=== PATIENT | female | born 1960 | race Caucasian/White ===

== ENCOUNTER 2017-05-27 07:20 | Day surgery (SDC) | payer OTHER ==
[2017-05-21 09:31] LABS: ADD SCAN DIFF NO
[2017-05-21 09:38] LABS: BASOPHILS % 0.4 % (0.0-2.0); EOSINOPHILS # 0.1 10^3/ul (0.0-0.5); EOSINOPHILS % 1.2 % (0.0-7.0); HEMATOCRIT 38.5 % (37.0-47.0); HEMOGLOBIN 13.2 g/dl (12.0-16.0); LYMPHOCYTES # 2.4 10^3/ul (0.8-2.9); LYMPHOCYTES % 32.9 % (15.0-51.0); MEAN CORPUSCULAR HEMOGLOBIN 27.4 pg (29.0-33.0); MEAN CORPUSCULAR HGB CONC 34.3 g/dl (32.0-37.0); MEAN CORPUSCULAR VOLUME 79.9 fl (82.0-101.0); MEAN PLATELET VOLUME 10.4 fl (7.4-10.4); MONOCYTE # 0.4 10^3/ul (0.3-0.9); MONOCYTES % 5.6 % (0.0-11.0); NEUTROPHIL # 4.4 10^3/ul (1.6-7.5); NEUTROPHILS % 59.6 % (39.0-77.0); PLATELET COUNT 326 10^3/UL (140-415); RED BLOOD COUNT 4.82 10^6/ul (4.20-5.40); RED CELL DISTRIBUTION WIDTH 11.9 % (11.5-14.5); WHITE BLOOD COUNT 7.3 10^3/ul (4.8-10.8)
[2017-05-21 10:06] LABS: INR 0.91; PROTIME 12.3 Sec (12.2-14.2)
[2017-05-21 10:07] LABS: PARTIAL THROMBOPLASTIN TIME 25.3 Sec (25.0-35.0)
[2017-05-21 10:19] LABS: ALBUMIN 4.7 g/dl (3.3-4.9); ALBUMIN/GLOBULIN RATIO 1.56; BILIRUBIN,INDIRECT 0.2 mg/dl (0-1.1); BILIRUBIN,TOTAL 0.2 mg/dl (0.2-1.3); TOTAL PROTEIN 7.7 g/dl (6.1-8.1)
[2017-05-21 10:22] LABS: CALCIUM 9.6 mg/dl (8.4-10.2); CREATININE 0.57 mg/dl (0.44-1.00); POTASSIUM 4.5 mmol/L (3.5-5.1)
[~2017-05-27] VITALS: Ht 167.6 cm; Wt 82.0 kg
[2017-05-27 07:55] VITALS: BMI 29.2
[2017-05-27 08:15] VITALS: BP 220/90; PULSE 80
[2017-05-27 08:27] VITALS: BP 200/95; PULSE 76
[2017-05-27] MEDS: hydrALAzine 20 MG INJ IV PRN ×4 (08:27→09:31)
[2017-05-27 08:40] VITALS: BP 190/85; PULSE 81
[2017-05-27 08:58] VITALS: BP 171/75; PULSE 76
[2017-05-27] MEDS ORDERED: GLUCOSE GEL 15 GRAM TUBE BUCCAL PRN (09:30)
[2017-05-27] MEDS ORDERED: INSULIN ASPART [NOVOLOG] 3 ML PEN SC ONE (09:30)
[2017-05-27] MEDS ORDERED: GLUCOSE GEL 15 GRAM TUBE PO PRN ×2 (09:30)
[2017-05-27] MEDS ORDERED: DEXTROSE 50% 50 ML SYRINGE IV PRN ×2 (09:30)
[2017-05-27] MEDS ORDERED: GLUCAGON 1 MG INJ IM PRN (09:30)
[2017-05-27 09:34] VITALS: Ht 167.6 cm; Wt 82.0 kg
[2017-05-27] MEDS ORDERED: LABETALOL HCL 20MG INJ ONE (10:04)
[2017-05-27] MEDS ORDERED: SIMV40TA2 PO (11:06)
[2017-05-27] MEDS ORDERED: SITA100T8 PO (11:06)
[2017-05-27] MEDS ORDERED: CLON-379 PO (11:06)
[2017-05-27] MEDS ORDERED: PIOG45TA15 PO (11:07)
[2017-05-27] MEDS ORDERED: LISI20TA11 PO (11:07)
[2017-05-27] MEDS ORDERED: METF1000 PO (11:07)
[2017-05-27] MEDS ORDERED: GLIP5TAB13 PO (11:08)
[2017-05-27] MEDS ORDERED: SOD CHLORIDE 0.9% 1,000 ML IV SCH (11:30)
[2017-05-27] MEDS ORDERED: CEFAZOLIN 2 GM/50 ML (PMX) 50 ML IVPB ONE (11:30)
== END 2017-05-27 10:30 | disposition home or self-care (01) ==
LOC: SDS 07:20
PROVIDERS: ATTEND Surgery Surgical Oncology
DX: C50.912 Malignant neoplasm of unspecified site of left female breast (principal); Z53.9 Procedure and treatment not carried out, unspecified reason
CPT/HCPCS: 80053; 82962; 85025; 85610; 85730; J0360; J1815

== ENCOUNTER 2017-05-27 10:40 | Inpatient (IN) | payer OTHER ==
[~2017-05-27] VITALS: Ht 167.6 cm; Wt 84.7 kg
[2017-05-27 10:45] VITALS: Ht 167.6 cm; Wt 84.7 kg
[2017-05-27] MEDS ORDERED: CLON-379 PO (11:06)
[2017-05-27] MEDS ORDERED: SITA100T8 PO (11:06)
[2017-05-27] MEDS ORDERED: SIMV40TA2 PO (11:06)
[2017-05-27] MEDS ORDERED: METF1000 PO (11:07)
[2017-05-27] MEDS ORDERED: LISI20TA11 PO (11:07)
[2017-05-27] MEDS ORDERED: PIOG45TA15 PO (11:07)
[2017-05-27] MEDS ORDERED: GLIP5TAB13 PO (11:08)
[2017-05-27 11:20] LABS: ADD SCAN DIFF NO
[2017-05-27 11:25] LABS: BASOPHILS % 0.5 % (0.0-2.0); EOSINOPHILS # 0.1 10^3/ul (0.0-0.5); EOSINOPHILS % 0.8 % (0.0-7.0); HEMATOCRIT 40.7 % (37.0-47.0); HEMOGLOBIN 13.8 g/dl (12.0-16.0); LYMPHOCYTES # 2.8 10^3/ul (0.8-2.9); LYMPHOCYTES % 31.2 % (15.0-51.0); MEAN CORPUSCULAR HGB CONC 33.9 g/dl (32.0-37.0); MEAN CORPUSCULAR VOLUME 79.6 fl (82.0-101.0); MEAN PLATELET VOLUME 10.6 fl (7.4-10.4); MONOCYTE # 0.4 10^3/ul (0.3-0.9); MONOCYTES % 4.4 % (0.0-11.0); NEUTROPHIL # 5.5 10^3/ul (1.6-7.5); NEUTROPHILS % 62.6 % (39.0-77.0); PLATELET COUNT 310 10^3/UL (140-415); RED BLOOD COUNT 5.11 10^6/ul (4.20-5.40); RED CELL DISTRIBUTION WIDTH 12.3 % (11.5-14.5); WHITE BLOOD COUNT 8.8 10^3/ul (4.8-10.8)
[2017-05-27] MEDS ORDERED: NICARDipine HCL 30 MG CAPSULE PO ONE (11:30)
[2017-05-27 11:55] LABS: INR 0.84; PROTIME 11.5 Sec (12.2-14.2); PT RATIO 0.9
[2017-05-27 11:56] LABS: PARTIAL THROMBOPLASTIN TIME 22.4 Sec (25.0-35.0)
[2017-05-27] MEDS ORDERED: ONDANSETRON 4 MG INJ IV PRN (12:00)
[2017-05-27] MEDS ORDERED: ACETAMINOPHEN 325 MG TAB PO PRN (12:00)
--- NOTE | 2017-05-27 12:17 | ERA ---
ER Documentation Chief Complaint Date/Time DATE: 05/27/17 TIME: 12:15 Chief Complaint HTN DENIES CP, SOB HPI 57-year-old female who presents for asymptomatic hypertension. The patient was being arranged for preop for left breast mastectomy secondary to breast cancer. She did not take her morning blood pressure medication that includes clonidine. Prior to operation the patient's blood pressure was in the 200s and the operation was canceled. She was given clonidine and hydralazine and sent to the emergency room for admission. The patient has no symptoms no headache chest pain or shortness of breath. ROS All systems reviewed and are negative except as per history of present illness. Medications Home Meds Reported Medications Glipizide* (Glipizide*) 5 Mg Tablet, 5 MG PO AC BREAKFAST, TAB 05/27/17 Pioglitazone Hcl* (Pioglitazone Hcl*) 45 Mg Tablet, 45 MG PO DAILY, TAB 05/27/17 Metformin Hcl* (Metformin Hcl*) 1,000 Mg Tablet, 1000 MG PO WITH BREAKFAST DINNE , #30 TAB 05/27/17 Lisinopril* (Lisinopril*) 20 Mg Tablet, 20 MG PO DAILY, #30 TAB 05/27/17 Clonidine Hcl* (Clonidine Hcl*) 0.1 Mg Tab, 0.1 MG PO DAILY Y for ELEVATED BLOOD PRESSURE, TAB 05/27/17 Sitagliptin* (Januvia*) 100 Mg Tablet, 100 MG PO DAILY, #30 TAB 05/27/17 Simvastatin* (Zocor*) 40 Mg Tablet, 80 MG PO QHS, #30 TAB 05/27/17 Allergies Allergies: Coded Allergies: No Known Allergy (Unverified , 05/27/17) PMhx/Soc History of Surgery: Yes (HYSTRECTOMY, CSECTION) Anesthesia Reaction: No Hx Neurological Disorder: No Hx Respiratory Disorders: No Hx Cardiac Disorders: Yes (HTN) Hx Miscellaneous Medical Probl: Yes (BREAST TUMOR) Hx Alcohol Use: No Hx Substance Use: No Hx Tobacco Use: No Smoking Status: Never smoker Physical Exam Vitals Vital Signs Date Time Temp Pulse Resp B/P Pulse Ox O2 Delivery O2 Flow Rate FiO2 05/27/17 11:56 80 18 147/57 99 Room Air 05/27/17 11:05 Nasal Cannula 2 05/27/17 10:45 98.4 88 18 193/83 100 Physical Exam General: Well developed, well nourished, no acute distress Head: Normocephalic, atraumatic. Eyes: Pupils equally reactive, EOM intact ENT: Moist mucous membranes Neck: Supple, no lymphadenopathy Respiratory: Lungs clear bilaterally, no distress Cardiovascular: RRR, no murmurs, rubs, or gallops Abdominal: Soft, non-tender, non-distended, no peritoneal signs : Deferred MSK: No edema, no unilateral swelling, 5/5 strength Neurologic: Alert and oriented, moving all extremities, normal speech, no focal weakness, no cerebellar signs Skin: No rash Psych: Normal mood Result Diagram: 05/27/17 1110 Results 24 hrs Laboratory Tests Test 05/27/17 11:10 White Blood Count 8.810^3/ul Red Blood Count 5.1110^6/ul Hemoglobin 13.8g/dl Hematocrit 40.7% Mean Corpuscular Volume 79.6fl Mean Corpuscular Hemoglobin 27.0pg Mean Corpuscular Hemoglobin Concent 33.9g/dl Red Cell Distribution Width 12.3% Platelet Count 60454^3/UL Mean Platelet Volume 10.6fl Neutrophils % 62.6% Lymphocytes % 31.2% Monocytes % 4.4% Eosinophils % 0.8% Basophils % 0.5% Nucleated Red Blood Cells % 0.0/100WBC Neutrophils # 5.510^3/ul Lymphocytes # 2.810^3/ul Monocytes # 0.410^3/ul Eosinophils # 0.110^3/ul Basophils # 0.010^3/ul Nucleated Red Blood Cells # 0.010^3/ul Prothrombin Time 11.5Sec Prothrombin Time Ratio 0.9 INR International Normalized Ratio 0.84 Activated Partial Thromboplast Time 22.4Sec Current Medications Medications (Trade) Dose Ordered Sig/Debby Route PRN Reason Start Time Stop Time Status Last Admin Dose Admin Nicardipine HCl (Cardene) 30 mg ONCE ONCE PO 05/27/17 11:30 05/27/17 11:31 DC 05/27/17 11:24 Ondansetron HCl (Zofran Inj) 4 mg BRIDGE ORDER PRN IV NAUSEA AND/OR VOMITING 05/27/17 12:00 05/28/17 11:59 Acetaminophen (Tylenol Tab) 650 mg ER BRIDGE PRN PO MILD PAIN/FEVER 05/27/17 12:00 05/28/17 11:59 Procedures/MDM LAB INTERPRETATION: No acute process MEDICAL DECISION MAKING: Patient's blood pressure was elevated (>120/80) but appears stable without evidence of hypertensive emergency or urgency. The patient was counseled about the risks of hypertension and urged to pursue outpatient monitoring and therapy within a week with their primary care physician. The patient has no signs or symptoms of endorgan dysfunction. No indication for EKG, troponin, CT brain. The patient did not take her morning blood pressure medication which is likely the etiology. I believe the risk of rapidly lowering her blood pressure outweigh the benefits. Oral Cardene was provided. Patient does not require IV medication. Medical surgical admission would be appropriate. Her surgeon would like her admitted for likely operative intervention in the morning. I kept the patient and/or family informed of laboratory and diagnostic imaging results throughout the emergency room course. DISPOSITION PLAN: Medical surgical admission for management of essential hypertension and preop CONSULTATION: Accepting care team and consultations: I discussed the current laboratory data, diagnostic imaging and emergency care provided. Admitting team: Dr. Daniel Whatley Admitting team indication: Insurance directed Consulting services: Dr. Gauthier, surgeon Departure Diagnosis: Primary Impression: Essential hypertension Additional Impressions: History of breast cancer Asymptomatic hypertensive urgency Condition: Stable SHERITA DONOVAN MD May 27, 2017 12:17
[2017-05-27 12:31] LABS: CALCIUM 9.7 mg/dl (8.4-10.2); CREATININE 0.44 mg/dl (0.44-1.00); POTASSIUM 4.3 mmol/L (3.5-5.1)
[2017-05-27 16:45] VITALS: BP 183/70; PULSE 83; RESP 18
[2017-05-27] MEDS ORDERED: hydrALAzine 20 MG INJ IV PRN (20:30)
[2017-05-27] MEDS ORDERED: DEXTROSE 50% 50 ML SYRINGE IV PRN ×2 (21:00)
[2017-05-27] MEDS ORDERED: GLUCOSE GEL 15 GRAM TUBE BUCCAL PRN (21:00)
[2017-05-27] MEDS ORDERED: GLUCOSE GEL 15 GRAM TUBE PO PRN ×2 (21:00)
[2017-05-27] MEDS ORDERED: GLUCAGON 1 MG INJ IM PRN (21:00)
[2017-05-27] MEDS: ATORVASTATIN 40 MG TAB PO SCH (21:12)
[2017-05-27] MEDS: LISINOPRIL 20 MG TAB PO SCH (21:13)
[2017-05-27] MEDS ORDERED: NEOSTIGMINE 3 MG/3 ML SYRINGE ONE (21:32)
[2017-05-27] MEDS ORDERED: ONDANSETRON 4 MG INJ ONE (21:32)
[2017-05-27] MEDS ORDERED: GLYCOPYRROLATE 0.4 MG INJ ONE (21:32)
[2017-05-27] MEDS ORDERED: MIDAZOLAM 1 MG/ML 2 ML INJ ONE (21:32)
[2017-05-27] MEDS ORDERED: PROPOFOL 20 ML ONE (21:32)
[2017-05-27] MEDS ORDERED: CEFAZOLIN 1 GM INJ ONE (21:32)
[2017-05-27] MEDS ORDERED: DEXAMETHASONE 4 MG/ML 1 ML INJ ONE (21:32)
[2017-05-27] MEDS ORDERED: ROCURONIUM 50 MG INJ ONE (21:32)
--- NOTE | 2017-05-27 21:32 | HP ---
Date/Time of Note Date/Time of Note DATE: 05/27/17 TIME: 21:30 Assessment/Plan VTE Prophylaxis VTE Prophylaxis Intervention: other Lines/Catheters IV Catheter Type (from Nrs): Saline Lock Assessment/Plan Chief Complaint/Hosp Course [facility] HYPERTENSION DM LEFT BREAST CANCER PLAN BP CONTROL Problems: HPI/ROS Admit Date/Time Admit Date/Time May 27, 2017 at 11:38 ROS Constitutional: no complaints Eyes: no complaints ENT: no complaints Respiratory: no complaints Cardiovascular: no complaints Gastrointestinal: no complaints Genitourinary: no complaints Musculoskeletal: no complaints Skin: no complaints Neurologic: no complaints Endocrine: no complaints Lymphatic: no complaints Psychological: no complaints Immunologic: no complaints PMH/Family/Social Past Medical History Medical History: diabetes, hypertension, other (BREAST CA) Past Surgical History Past Surgical Hx: other (C SEC AND HYSTERECTOMY) Social History Alcohol Use: none Smoking Status: Never smoker Drug Use: none Exam/Review of Systems Vital Signs Vitals Vital Signs Date Time Temp Pulse Resp B/P Pulse Ox O2 Delivery O2 Flow Rate FiO2 05/27/17 16:45 96.8 83 18 183/70 98 Room Air 05/27/17 11:05 2 Exam Constitutional: alert, oriented, well developed Psych: nl mood/affect, no complaints Head: atraumatic, normocephalic Eyes: EOMI, nl conjunctiva, nl lids ENMT: nl external ears & nose, nl lips & teeth, nl nasal mucosa & septum Neck: non-tender, supple Respiratory: clear to auscultation, normal air movement Cardiovascular: nl pulses, regular rate and rhythm Gastrointestinal: nl liver, spleen, non-tender, soft Genitourinary - Female: nl adnexae Musculoskeletal: nl extremities to inspection, nl gait and stance Extremities: normal pulses Neurological: ACCOUNT [employer]CIAL [employer] II-XII intact, nl mental status, nl speech Skin: nl turgor Lymph: nl lymph nodes Labs Result Diagram: 05/27/17 1110 05/27/17 1149 Medications Medications Current Medications Lisinopril (Zestril) 20 mg DAILY PO Last administered on 05/27/17 21:13; Admin Dose 20 MG; Start 05/27/17 at 20:30 Atorvastatin Calcium (Lipitor) 40 mg DAILY@21 PO Last administered on 21:12; Admin Dose 40 MG; Start 05/27/17 at 21:00 Clonidine (Catapres) 0.2 mg TID PO Last administered on 05/27/17t 21:13; Admin Dose 0.2 MG; Start 05/27/17 at 21:00 Hydralazine HCl (Apresoline) 10 mg Q6H PRN IV SBP>170; Start 05/27/17 at 20:30 Diagnostic Test (Pha) 1 ea 1 ea 02 XX ; Start 05/28/17 at 02:00 Dextrose/Sodium Chloride (D5-1/2ns) 1,000 ml @ 40 mls/hr Q24H IV ; Start at 00:00 Miscellaneous Information 1 ea NOTE XX ; Start 05/27/17 at 21:00 Glucose (Glutose) 15 gm Q15M PRN PO DECREASED GLUCOSE; Start 05/27/17 at 21:00 Glucose (Glutose) 22.5 gm Q15M PRN PO DECREASED GLUCOSE; Start 05/27/17 at 21: 00 Dextrose (D50w Syringe) 25 ml Q15M PRN IV DECREASED GLUCOSE; Start 05/27/17 at 21:00 Dextrose (D50w Syringe) 50 ml Q15M PRN IV DECREASED GLUCOSE; Start 05/27/17 at 21:00 Glucagon (Glucagen) 1 mg Q15M PRN IM DECREASED GLUCOSE; Start 05/27/17 at 21:00 Glucose (Glutose) 15 gm Q15M PRN BUCCAL DECREASED GLUCOSE; Start 05/27/17 at 21 :00 SAMMIE HODGES MD May 27, 2017 21:32
[2017-05-27 21:35] VITALS: BP 184/84; RESP 19
[2017-05-27 22:18] VITALS: BP 120/59; PULSE 93; RESP 18
[2017-05-27] MEDS: INSULIN ASPART [NOVOLOG] 3 ML PEN SC SCH (22:25)
[2017-05-27] MEDS ORDERED: SUGAMMADEX SODIUM 200 MG/2 ML VIAL IV ONE (23:22)
[2017-05-28] MEDS ORDERED: DEXTROSE 5%-0.45% NACL 1,000 ML IV SCH
[2017-05-28] MEDS ORDERED: ACCU-CHEK XX SCH ×2 (02:00)
[2017-05-28 05:18] VITALS: BP 140/63; PULSE 78; RESP 18
[2017-05-28 06:20] LABS: BASOPHIL # 0.1 10^3/ul (0.0-0.1); BASOPHILS % 0.4 % (0.0-2.0); EOSINOPHILS # 0.1 10^3/ul (0.0-0.5); EOSINOPHILS % 0.5 % (0.0-7.0); HEMATOCRIT 40.3 % (37.0-47.0); HEMOGLOBIN 13.4 g/dl (12.0-16.0); LYMPHOCYTES % 25.9 % (15.0-51.0); MEAN CORPUSCULAR HEMOGLOBIN 26.7 pg (29.0-33.0); MEAN CORPUSCULAR HGB CONC 33.3 g/dl (32.0-37.0); MEAN CORPUSCULAR VOLUME 80.4 fl (82.0-101.0); MEAN PLATELET VOLUME 10.6 fl (7.4-10.4); MONOCYTE # 0.8 10^3/ul (0.3-0.9); MONOCYTES % 7.2 % (0.0-11.0); NEUTROPHIL # 7.5 10^3/ul (1.6-7.5); NEUTROPHILS % 65.7 % (39.0-77.0); PLATELET COUNT 375 10^3/UL (140-415); RED BLOOD COUNT 5.01 10^6/ul (4.20-5.40); RED CELL DISTRIBUTION WIDTH 12.3 % (11.5-14.5); WHITE BLOOD COUNT 11.4 10^3/ul (4.8-10.8)
[2017-05-28] MEDS ORDERED: AL HYDROX/MG HYDROX/SIMETH 30 ML CUP PO PRN (06:30)
[2017-05-28 06:41] LABS: CREATININE 0.59 mg/dl (0.44-1.00); POTASSIUM 3.8 mmol/L (3.5-5.1)
[2017-05-28 07:21] LABS: ADD SCAN DIFF NO
[2017-05-28 07:45] VITALS: BP 128/62; RESP 16
[2017-05-28] MEDS: INSULIN ASPART [NOVOLOG] 3 ML PEN SC SCH ×4 (08:00→20:11)
[2017-05-28] MEDS: LISINOPRIL 20 MG TAB PO SCH (12:30)
--- NOTE | 2017-05-28 12:54 | PN ---
Date/Time of Note Date/Time of Note DATE: 05/28/17 TIME: 12:52 Assessment/Plan VTE Prophylaxis VTE Prophylaxis Intervention: ambulation Lines/Catheters IV C[facility]ter Type (from [facility]): Saline Lock Assessment/Plan Chief Complaint/Hosp Course 1. HYPERTENSION 2. DM type II uncontrolled 3. LEFT BREAST CANCER Problems: Assessment/Plan 1. Start tradjenta 5 mg for DM type II 2. Dr Alvarez for cardiology consult and clearance before mastectomy Exam/Review of Systems Vital Signs Vitals Vital Signs Date Time Temp Pulse Resp B/P Pulse Ox O2 Delivery O2 Flow Rate FiO2 05/28/17 07:45 99.3 83 16 128/62 97 05/28/17 05:18 Room Air 05/27/17 11:05 2 Intake and Output 05/27/17 05/27/17 05/28/17 15:00 23:00 07:00 Intake Total 1500 ml Balance 1500 ml Results Result Diagram: 05/28/17 0455 05/28/17 0435 Results 24 hrs Laboratory Tests Test 05/27/17 17:16 05/27/17 21:08 05/27/17 22:23 05/28/17 01:53 Bedside Glucose 189 186 211 244 H Test 05/28/17 04:35 05/28/17 04:55 05/28/17 08:17 05/28/17 12:26 Sodium Level 136 Potassium Level 3.8 Chloride Level 99 Carbon Dioxide Level 25 Anion Gap 16 Blood Urea Nitrogen 13 Creatinine 0.59 Glucose Level 289 H Calcium Level 10.0 White Blood Count 11.4 #H Red Blood Count 5.01 Hemoglobin 13.4 Hematocrit 40.3 Mean Corpuscular Volume 80.4 L Mean Corpuscular Hemoglobin 26.7 L Mean Corpuscular Hemoglobin Concent 33.3 Red Cell Distribution Width 12.3 Platelet Count 375 # Mean Platelet Volume 10.6 H Neutrophils % 65.7 Lymphocytes % 25.9 Monocytes % 7.2 Eosinophils % 0.5 Basophils % 0.4 Nucleated Red Blood Cells % 0.0 Neutrophils # 7.5 Lymphocytes # 3.0 H Monocytes # 0.8 Eosinophils # 0.1 Basophils # 0.1 Nucleated Red Blood Cells # 0.0 Bedside Glucose 295 H 249 H Medications Medications Current Medications Lisinopril (Zestril) 20 mg DAILY PO Last administered on 05/28/17t 12:30; Admin Dose 20 MG; Start 05/27/17 at 20:30 Atorvastatin Calcium (Lipitor) 40 mg DAILY@21 PO Last administered on 21:12; Admin Dose 40 MG; Start 05/27/17 at 21:00 Clonidine (Catapres) 0.2 mg TID PO Last administered on 05/28/17 12:29; Admin Dose 0.2 MG; Start 05/27/17 at 21:00 Hydralazine HCl (Apresoline) 10 mg Q6H PRN IV SBP>170 Last administered on 05/27 21:48; Admin Dose 10 MG; Start 05/27/17 at 20:30 Diagnostic Test (Pha) 1 ea 1 ea 02 XX ; Start 05/28/17 at 02:00 Dextrose/Sodium Chloride (D5-1/2ns) 1,000 ml @ 40 mls/hr Q24H IV Last administered on 05/28/17 00:28; Admin Dose 40 MLS/HR; Start 05/28/17 at 00:00 Miscellaneous Information 1 ea NOTE XX ; Start 05/27/17 at 21:00 Glucose (Glutose) 15 gm Q15M PRN PO DECREASED GLUCOSE; Start 05/27/17 at 21:00 Glucose (Glutose) 22.5 gm Q15M PRN PO DECREASED GLUCOSE; Start 05/27/17 at 21: 00 Dextrose (D50w Syringe) 25 ml Q15M PRN IV DECREASED GLUCOSE; Start 05/27/17 at 21:00 Glucagon (Glucagen) 1 mg Q15M PRN IM DECREASED GLUCOSE; Start 05/27/17 at 21:00 Glucose (Glutose) 15 gm Q15M PRN BUCCAL DECREASED GLUCOSE; Start 05/27/17 at 21 :00 Al Hydrox/Mg Hydrox/Simethicone (Mag-Al Plus) 30 ml Q6H PRN PO GASTROINTESTINAL UPSET Last administered on 05/28/17 06:47; Admin Dose 30 ML; Start 05/28/17 at 06:30 SANTA GONZALEZ May 28, 2017 12:54
[2017-05-28] MEDS: LEVOFLOXACIN 500 MG TAB GTB SCH (15:25)
[2017-05-28] MEDS: LINAGLIPTIN 5 MG TABLET PO SCH (15:26)
--- NOTE | 2017-05-28 16:10 | CONS ---
Date/Time of Note Date/Time of Note DATE: 05/28/17 TIME: 16:04 Assessment/Plan Assessment/Plan Chief Complaint/Hosp Course IMP: 1.Pre-op for mastectomy 2.HTN-improving on oral antihypertensives 3.HL 4.Breast ca 5.DM Recc: -serial ecg's -Pauline -Echo -Consider lexiscan if abnl ecg or echo findings given cardiac risk factors -Follow BS closely -Continue statin and check fasting lipid panel Problems: Consultation Date/Type/Reason Admit Date/Time May 27, 2017 at 11:38 Date of Consultation: May 28, 2017 Type of Consultation: Cardiology Reason for Consultation Pre-op Hx of Present Illness 57 y/o female with H/O HTN, HL, CVA, DM, breastvca who presented for mastectomy and was found to have elevated uncontrolled BP. Thus procedure canceled and patient admitted for further work-up. Patient denies cp/sob/prior AL. Constitutional: no complaints Eyes: no complaints ENT: no complaints Respiratory: no complaints Cardiovascular: no complaints Gastrointestinal: no complaints Genitourinary: no complaints Musculoskeletal: no complaints Skin: no complaints Neurologic: no complaints Lymphatic: no complaints Psychological: nl mood/affect, no complaints Immunologic: no complaints Past Medical History Medical History: diabetes, high cholesterol, hypertension, other (BREAST CA, CVA) Past Surgical History Past Surgical Hx: other (C SEC AND HYSTERECTOMY) Social History Alcohol Use: none Smoking Status: Never smoker Drug Use: none Exam/Review of Systems Vital Signs Vitals Vital Signs Date Time Temp Pulse Resp B/P Pulse Ox O2 Delivery O2 Flow Rate FiO2 05/28/17 07:45 99.3 83 16 128/62 97 05/28/17 05:18 Room Air 05/27/17 11:05 2 Intake and Output 05/27/17 05/27/17 05/28/17 15:00 23:00 07:00 Intake Total 1500 ml Balance 1500 ml Exam Constitutional: alert, oriented Psych: no complaints Head: normocephalic ENMT: mucosa pink and moist Neck: jvd (8cm water), supple Respiratory: clear to auscultation Cardiovascular: regular rate and rhythm Gastrointestinal: non-tender, soft Musculoskeletal: muscle tone (normal) Extremities: edema (nonw) Neurological: other (No focal deficits) Results Result Diagram: 05/28/17 0455 05/28/17 0435 Results 24 hrs Laboratory Tests Test 05/27/17 17:16 05/27/17 21:08 05/27/17 22:23 05/28/17 01:53 Bedside Glucose 189 186 211 244 H Test 05/28/17 04:35 05/28/17 04:55 05/28/17 08:17 05/28/17 12:26 Sodium Level 136 Potassium Level 3.8 Chloride Level 99 Carbon Dioxide Level 25 Anion Gap 16 Blood Urea Nitrogen 13 Creatinine 0.59 Glucose Level 289 H Calcium Level 10.0 White Blood Count 11.4 #H Red Blood Count 5.01 Hemoglobin 13.4 Hematocrit 40.3 Mean Corpuscular Volume 80.4 L Mean Corpuscular Hemoglobin 26.7 L Mean Corpuscular Hemoglobin Concent 33.3 Red Cell Distribution Width 12.3 Platelet Count 375 # Mean Platelet Volume 10.6 H Neutrophils % 65.7 Lymphocytes % 25.9 Monocytes % 7.2 Eosinophils % 0.5 Basophils % 0.4 Nucleated Red Blood Cells % 0.0 Neutrophils # 7.5 Lymphocytes # 3.0 H Monocytes # 0.8 Eosinophils # 0.1 Basophils # 0.1 Nucleated Red Blood Cells # 0.0 Bedside Glucose 295 H 249 H Medications Medications Current Medications Lisinopril (Zestril) 20 mg DAILY PO Last administered on 05/28/17 12:30; Admin Dose 20 MG; Start 05/27/17 at 20:30 Atorvastatin Calcium (Lipitor) 40 mg DAILY@21 PO Last administered on 21:12; Admin Dose 40 MG; Start 05/27/17 at 21:00 Clonidine (Catapres) 0.2 mg TID PO Last administered on 05/28/17 12:29; Admin Dose 0.2 MG; Start 05/27/17 at 21:00 Hydralazine HCl (Apresoline) 10 mg Q6H PRN IV SBP>170 Last administered on 05/27 21:48; Admin Dose 10 MG; Start 05/27/17 at 20:30 Diagnostic Test (Pha) (Accu-Chek) 1 ea 02 XX ; Start 05/28/17 at 02:00 Miscellaneous Information 1 ea NOTE XX ; Start 05/27/17 at 21:00 Glucose (Glutose) 15 gm Q15M PRN PO DECREASED GLUCOSE; Start 05/27/17 at 21:00 Glucose (Glutose) 22.5 gm Q15M PRN PO DECREASED GLUCOSE; Start 05/27/17 at 21: 00 Dextrose (D50w Syringe) 25 ml Q15M PRN IV DECREASED GLUCOSE; Start 05/27/17 at 21:00 Dextrose (D50w Syringe) 50 ml Q15M PRN IV DECREASED GLUCOSE; Start 05/27/17 at 21:00 Glucagon (Glucagen) 1 mg Q15M PRN IM DECREASED GLUCOSE; Start 05/27/17 at 21:00 Glucose (Glutose) 15 gm Q15M PRN BUCCAL DECREASED GLUCOSE; Start 05/27/17 at 21 :00 Al Hydrox/Mg Hydrox/Simethicone (Mag-Al Plus) 30 ml Q6H PRN PO GASTROINTESTINAL UPSET Last administered on 05/28/17 06:47; Admin Dose 30 ML; Start 05/28/17 at 06:30 Linagliptin (Tradjenta) 5 mg DAILY PO Last administered on 05/28/17 15:26; Admin Dose 5 MG; Start 05/28/17 at 13:00 Levofloxacin (Levaquin) 500 mg DAILY GTB Last administered on 05/28/17 15:25; Admin Dose 500 MG; Start 05/28/17 at 13:00 NICOLE POLANCO May 28, 2017 16:10
[2017-05-28] MEDS: ATORVASTATIN 40 MG TAB PO SCH (20:13)
[2017-05-28] MEDS: POLYETHYLENE GLYCOL 17 GM PACKET PO PRN (21:21)
[2017-05-28 21:28] VITALS: BP 125/60; RESP 18
[2017-05-28] MEDS ORDERED: BISACODYL (EC) 5 MG TAB PO PRN (21:30)
[2017-05-28] MEDS ORDERED: NA PHOSPHATE/BIPHOS 133 ML ENEMA PR PRN (21:30)
[2017-05-28] MEDS ORDERED: DOCUSATE SODIUM 100 MG CAP PO PRN (21:30)
[2017-05-29 00:27] VITALS: BP 144/65; PULSE 81
[2017-05-29] MEDS ORDERED: DEXTROSE 5%-0.45% NACL 1,000 ML IV SCH (00:30)
[2017-05-29] MEDS: Insulin NOVOLOG SS MODERATE Algorithm(NPO/TPN/ENTERAL FEEDS) SC SCH ×3 (05:19→17:23)
[2017-05-29 05:20] VITALS: BP 146/68; PULSE 70
[2017-05-29 05:46] LABS: CHOL/HDL RATIO 6.8 RATIO
[2017-05-29] MEDS ORDERED: INSULIN ASPART [NOVOLOG] 3 ML PEN SC SCH ×2 (06:00→21:00)
[2017-05-29 07:40] VITALS: BP 149/67; RESP 18
[2017-05-29] MEDS: LINAGLIPTIN 5 MG TABLET PO SCH (08:37)
[2017-05-29] MEDS: LISINOPRIL 20 MG TAB PO SCH (08:38)
[2017-05-29] MEDS: LEVOFLOXACIN 500 MG TAB GTB SCH (08:38)
[2017-05-29] MEDS ORDERED: REGADENOSON 0.4 MG/5 ML SYG ONE (10:18)
--- NOTE | 2017-05-29 12:10 | PN ---
Date/Time of Note Date/Time of Note DATE: 05/29/17 TIME: 12:08 Assessment/Plan VTE Prophylaxis VTE Prophylaxis Intervention: ambulation Lines/Catheters IV Catheter Type (from Nrs): Saline Lock Assessment/Plan Chief Complaint/Hosp Course 1. HYPERTENSION 2. DM type II uncontrolled 3. LEFT BREAST CANCER Problems: Assessment/Plan 1. Cardiology clearance 2. Possible discharge 3. estimated surgery on Subjective 24 Hr Interval Summary Constitutional: no complaints Exam/Review of Systems Vital Signs Vitals Vital Signs Date Time Temp Pulse Resp B/P Pulse Ox O2 Delivery O2 Flow Rate FiO2 05/29/17 07:40 99.0 66 18 149/67 96 05/28/17 05:18 Room Air 05/27/17 11:05 2 Intake and Output 05/28/17 05/28/17 05/29/17 15:00 23:00 07:00 Intake Total 90 ml 450 ml 320 ml Balance 90 ml 450 ml 320 ml Exam Constitutional: alert, oriented Head: normocephalic Neck: supple Respiratory: clear to auscultation Results Result Diagram: 05/28/17 0455 05/28/17 0435 Results 24 hrs Laboratory Tests Test 05/28/17 12:26 05/28/17 18:40 05/28/17 20:11 05/29/17 00:40 Bedside Glucose 249 H 163 Troponin I < 0.012 < 0.012 Test 05/29/17 04:45 05/29/17 05:04 Triglycerides Level 144 Cholesterol Level 274 H LDL Cholesterol, Calculated 205 HDL Cholesterol 40 Cholesterol/HDL Ratio 6.8 Bedside Glucose 249 H Medications Medications Current Medications Lisinopril (Zestril) 20 mg DAILY PO Last administered on 05/29/17 08:38; Admin Dose 20 MG; Start 05/27/17 at 20:30 Atorvastatin Calcium (Lipitor) 40 mg DAILY@21 PO Last administered on 20:13; Admin Dose 40 MG; Start 05/27/17 at 21:00 Clonidine (Catapres) 0.2 mg TID PO Last administered on 05/29/17 08:38; Admin Dose 0.2 MG; Start 05/27/17 at 21:00 Hydralazine HCl (Apresoline) 10 mg Q6H PRN IV SBP>170 Last administered on 05/27 21:48; Admin Dose 10 MG; Start 05/27/17 at 20:30 Miscellaneous Information 1 ea NOTE XX ; Start 05/27/17 at 21:00 Glucose (Glutose) 15 gm Q15M PRN PO DECREASED GLUCOSE; Start 05/27/17 at 21:00 Glucose (Glutose) 22.5 gm Q15M PRN PO DECREASED GLUCOSE; Start 05/27/17 at 21: 00 Dextrose (D50w Syringe) 25 ml Q15M PRN IV DECREASED GLUCOSE; Start 05/27/17 at 21:00 Dextrose (D50w Syringe) 50 ml Q15M PRN IV DECREASED GLUCOSE; Start 05/27/17 at 21:00 Glucagon (Glucagen) 1 mg Q15M PRN IM DECREASED GLUCOSE; Start 05/27/17 at 21:00 Glucose (Glutose) 15 gm Q15M PRN BUCCAL DECREASED GLUCOSE; Start 05/27/17 at 21 :00 Al Hydrox/Mg Hydrox/Simethicone (Mag-Al Plus) 30 ml Q6H PRN PO GASTROINTESTINAL UPSET Last administered on 05/28/17 06:47; Admin Dose 30 ML; Start 05/28/17 at 06:30 Linagliptin (Tradjenta) 5 mg DAILY PO Last administered on 05/29/17 08:37; Admin Dose 5 MG; Start 05/28/17 at 13:00 Levofloxacin (Levaquin) 500 mg DAILY GTB Last administered on 05/29/17 08:38; Admin Dose 500 MG; Start 05/28/17 at 13:00 Polyethylene Glycol (Miralax) 17 gm DAILY PRN PO CONSTIPATION Last administered on 05/28/17 21:21; Admin Dose 17 GM; Start 05/28/17 at 21:30 Docusate Sodium (Colace) 100 mg BID PRN PO CONSTIPATION; Start 05/28/17 at 21: 30 Bisacodyl (Dulcolax) 10 mg BID PRN PO CONSTIPATION; Start 05/28/17 at 21:30 Sodium Biphosphate/ Sodium Phosphate (Fleet Enema) 133 ml DAILY PRN AR CONSTIPATION; Start 05/28/17 at 21:30 Insulin Aspart (Novolog Insulin Pen) (Adult SC Insulin - Moder... Q6 SC Last administered on 05/29/17 05:19; Admin Dose 6 UNIT; Start 05/29/17 at 06:00 SANTA GONZALEZ May 29, 2017 12:09
[2017-05-29 13:00] VITALS: BP 159/71
[2017-05-29 14:00] VITALS: BP 137/63
--- NOTE | 2017-05-29 16:23 | RADRPT ---
PROCEDURE: Nuclear medicine myocardial perfusion scan CLINICAL INDICATION: Chest pain; preop TECHNIQUE: 30.0 mCi of technetium 99m Myoview was administered for the stress study. 10.0 mCi of technetium 99m Myoview was administered for the resting study. The patient was stressed with 0.4 mg of Lexiscan. Images were reviewed in the short axis, vertical long axis, and horizontal long axis v iews. Wall motion was assessed and ejection fraction was calculated as well. Images were reviewed o n a high-resolution PACS workstation. COMPARISON: None available FINDINGS: Left ventricular size is within normal limits. There is moderate soft tissue and bowel attenuation artifact. The stress tomographic images demonstrate moderate diminished perfusion along the inferio r wall. Minimal breast attenuation artifact along the distal anteroseptal wall is seen as well. Th e resting tomographic images demonstrate a similar pattern. There is no evidence for reversible isc hemia. Wall motion is normal. The ejection fraction is calculated at 67%. IMPRESSION: 1. Moderate diminished perfusion along the inferior wall on the stress and rest images consistent w ith an old significant nontransmural HI. 2. There is no evidence for reversible ischemia. 3. Mild breast attenuation artifact. 4. Normal wall motion with normal ejection fraction of 67%. RPTAT: HMJB .Kris Camacho MD, Date Time Electronically viewed and signed by .Kris Camacho MD, MD on 05/29/2017 16:23 .B/
--- NOTE | 2017-05-29 16:26 | CONS ---
Date/Time of Note Date/Time of Note DATE: 05/29/17 TIME: 16:22 Assessment/Plan Assessment/Plan Additional Assessment/Plan 1.Pre-op for mastectomy - stress tst done today - will await results - if negative, OK to proceed 2.HTN-improving on oral antihypertensives - better now 3.HL - stable 4.Breast ca - resection to follow 5.DM - on meds, keep euglycemic. Consultation Date/Type/Reason Admit Date/Time May 27, 2017 at 11:38 Initial Consult Date 05/28/17 Type of Consultation: Cardiology 24 HR Interval Summary Free Text/Dictation S/p stress test will await results ROS: No fever, no chills, no nausea, no vomiting, no diarrhea/constipation No recent weight changes No chest pain, no PND, no orthopnea No dizziness, blurred vision No thirst, no heat or cold intolerance Exam/Review of Systems Vital Signs Vitals Vital Signs Date Time Temp Pulse Resp B/P Pulse Ox O2 Delivery O2 Flow Rate FiO2 05/29/17 07:40 99.0 66 18 149/67 96 05/28/17 05:18 Room Air 05/27/17 11:05 2 Intake and Output 05/28/17 05/28/17 05/29/17 15:00 23:00 07:00 Intake Total 90 ml 450 ml 320 ml Balance 90 ml 450 ml 320 ml Exam Geneal: WN/WD/NAD, AOx 3 HEENT: Unicetric/atraumatic/EOMI (follow commands) NECK: JVD elevated, no thyromegaly Lymph: no lymphadenopathy HEART: regular with no S3, II/ systolic murmur at apex LUNGS: Coarse sounds ABD: soft, NT, ND, +BS : Intact Neuro: non focal SKIN: chronic changes EXT: trace edema Results Result Diagram: 05/28/17 0455 05/28/17 0435 Results 24 hrs Laboratory Tests Test 05/28/17 18:40 05/28/17 20:11 05/29/17 00:40 05/29/17 04:45 Troponin I < 0.012 < 0.012 Bedside Glucose 163 Triglycerides Level 144 Cholesterol Level 274 H LDL Cholesterol, Calculated 205 HDL Cholesterol 40 Cholesterol/HDL Ratio 6.8 Test 05/29/17 05:04 05/29/17 12:38 Bedside Glucose 249 H 209 Medications Medications Current Medications Lisinopril (Zestril) 20 mg DAILY PO Last administered on 05/29/17 08:38; Admin Dose 20 MG; Start 05/27/17 at 20:30 Atorvastatin Calcium (Lipitor) 40 mg DAILY@21 PO Last administered on 20:13; Admin Dose 40 MG; Start 05/27/17 at 21:00 Clonidine (Catapres) 0.2 mg TID PO Last administered on 05/29/17 12:40; Admin Dose 0.2 MG; Start 05/27/17 at 21:00 Hydralazine HCl (Apresoline) 10 mg Q6H PRN IV SBP>170 Last administered on 05/27 21:48; Admin Dose 10 MG; Start 05/27/17 at 20:30 Miscellaneous Information 1 ea NOTE XX ; Start 05/27/17 at 21:00 Glucose (Glutose) 15 gm Q15M PRN PO DECREASED GLUCOSE; Start 05/27/17 at 21:00 Glucose (Glutose) 22.5 gm Q15M PRN PO DECREASED GLUCOSE; Start 05/27/17 at 21: 00 Dextrose (D50w Syringe) 25 ml Q15M PRN IV DECREASED GLUCOSE; Start 05/27/17 at 21:00 Dextrose (D50w Syringe) 50 ml Q15M PRN IV DECREASED GLUCOSE; Start 05/27/17 at 21:00 Glucagon (Glucagen) 1 mg Q15M PRN IM DECREASED GLUCOSE; Start 05/27/17 at 21:00 Glucose (Glutose) 15 gm Q15M PRN BUCCAL DECREASED GLUCOSE; Start 05/27/17 at 21 :00 Al Hydrox/Mg Hydrox/Simethicone (Mag-Al Plus) 30 ml Q6H PRN PO GASTROINTESTINAL UPSET Last administered on 05/28/17 06:47; Admin Dose 30 ML; Start 05/28/17 at 06:30 Linagliptin (Tradjenta) 5 mg DAILY PO Last administered on 05/29/17 08:37; Admin Dose 5 MG; Start 05/28/17 at 13:00 Levofloxacin (Levaquin) 500 mg DAILY GTB Last administered on 05/29/17 08:38; Admin Dose 500 MG; Start 05/28/17 at 13:00 Polyethylene Glycol (Miralax) 17 gm DAILY PRN PO CONSTIPATION Last administered on 05/28/17 21:21; Admin Dose 17 GM; Start 05/28/17 at 21:30 Docusate Sodium (Colace) 100 mg BID PRN PO CONSTIPATION; Start 05/28/17 at 21: 30 Bisacodyl (Dulcolax) 10 mg BID PRN PO CONSTIPATION; Start 05/28/17 at 21:30 Sodium Biphosphate/ Sodium Phosphate (Fleet Enema) 133 ml DAILY PRN ID CONSTIPATION; Start 05/28/17 at 21:30 Insulin Aspart (Novolog Insulin Pen) (Adult SC Insulin - Moder... Q6 SC Last administered on 05/29/17 05:19; Admin Dose 6 UNIT; Start 05/29/17 at 06:00 HITESH DUMONT MD May 29, 2017 16:26
--- NOTE | 2017-05-29 17:56 | RADRPT ---
Echocardiogram Report Patient Name: OSVALDO NICOLAS Gender: Female Date: 1960 Study Date: 29-May-2017 [employer]obile Sales Consultant: Willa [facility] Location: 2249 Ref. Physician: NICOLE POLANCO Quality: Adequate Procedures: Transthoracic echocardiogram with complete 2D, M-Mode, and doppler examination. Indications: Pre-op. 2D/M Mode Doppler Measurement Value Normal Ranges Measurement Value Normal Ranges LVIDd 2D 4.3 3.5 - 5.6 cm AV Peak Sanjay 1.7 m/sec LVIDs 2D 3.0 2.1 - 4.1 cm AV Peak PG 11.0 mmHg FS 2D 30.8 % AI Peak PG 69.0 mmHg LVPWd 2D 1.3 0.6 - 1.1 cm AI Peak Sanjay 4.2 m/sec IVSd 2D 1.3 0.6 - 1.1 cm AI PHT 615.0 msec IVS/LVPW 2D 1.0 LVOT Peak Sanjay 1.0 m/sec AoR Diam 2D 2.6 2.0 - 3.7 cm LVOT Peak PG 4.0 mmHg LA/Ao 2D 2 0 - 1 MV E Peak Sanjay 0.8 m/sec EDV 2D 77.3 cm3 MV A Peak Sanjay 0.9 m/sec ESV 2D 25.7 cm3 MV E/A 0.9 LA Dimen 2D 4.0 2.3 - 4.0 cm MV Decel Time 236 msec MV E/A 0.9 TR Peak Sanjay 2.5 m/sec TR Peak PG 25.0 mmHg Findings Left Ventricle: Normal left ventricular systolic function. Normal left ventricular cavity size. Mild concentric left ventricular hypertrophy. Ejection fraction is visually estimated at 65 %. Tissue Doppler/Mitral Doppler indices are consistent with impaired relaxation (Stage I diastolic dysfunction). Right Ventricle: Normal right ventricular size. Normal right ventricular systolic function. Left Atrium: The left atrium is normal in size. Right Atrium: The right atrium is normal in size. Mitral Valve: Mitral valve leaflets appear mildly thickened. Trace mitral regurgitation. Aortic Valve: Aortic cusps appear mildly calcified. Aortic valve opens normally. Mild aortic valve regurgitation. Tricuspid Valve: Normal appearance of the tricuspid valve. Estimated peak PA systolic pressure 28 mmHg. There is mild tricuspid regurgitation. Pulmonic Valve: Normal pulmonic valve appearance. There is trace pulmonic regurgitation. Pericardium: Normal pericardium with no significant pericardial effusion. Aorta: Normal aortic root. IVC: Normal size and normal respiratory collapse consistent with normal right atrial pressure. Conclusions 1.Normal left ventricular systolic function. Normal left ventricular cavity size. Mild concentric left ventricular hypertrophy. Ejection fraction is visually estimated at 65 %. Tissue Doppler/Mitral Doppler indices are consistent with impaired relaxation (Stage I diastolic dysfunction). 2.Mitral valve leaflets appear mildly thickened. Trace mitral regurgitation. 3.Aortic cusps appear mildly calcified. Aortic valve opens normally. Mild aortic valve regurgitation. 4.Normal appearance of the tricuspid valve. Estimated peak PA systolic pressure 28 mmHg. There is mild tricuspid regurgitation. Electronically Signed By: Kris Au 29-May-2017 17:55:06 -0700 Patient Name: OSVALDO NICOLAS Study Date: 29-May-2017 [id number]
[2017-05-29] MEDS: ATORVASTATIN 40 MG TAB PO SCH (20:39)
[2017-05-29] MEDS: Insulin NOVOLOG SS MODERATE Algorithm (SS with meals and bedtime) SC SCH (20:43)
[2017-05-29 21:47] VITALS: BP 142/65; RESP 20
[2017-05-30] MEDS ORDERED: ACCUCHECK AT 2AM (Patients on SS coverage) XX SCH (02:00)
[2017-05-30] MEDS: POLYETHYLENE GLYCOL 17 GM PACKET PO PRN (05:22)
[2017-05-30 07:56] VITALS: BP 184/81; RESP 16
[2017-05-30] MEDS: LISINOPRIL 20 MG TAB PO SCH (08:22)
[2017-05-30] MEDS: LINAGLIPTIN 5 MG TABLET PO SCH (08:22)
[2017-05-30] MEDS: LEVOFLOXACIN 500 MG TAB GTB SCH (08:22)
[2017-05-30] MEDS: Insulin NOVOLOG SS MODERATE Algorithm (SS with meals and bedtime) SC SCH ×2 (08:24→12:10)
[2017-05-30 09:55] VITALS: BP 124/57
[2017-05-30 14:04] VITALS: BP 117/54; PULSE 59
--- NOTE | 2017-05-30 14:33 | PDOCDIS ---
Discharge Instructions CONDITION Patient Condition: Good HOME CARE INSTRUCTIONS: Special Diet: KOSHER ACTIVITY: Activity Restrictions: Slowly Increase Activity FOLLOW UP/APPOINTMENTS Follow-up Plan f/u dr evans next wk see own pcp [address] duran 1 wk SAMMIE HODGES MD May 30, 2017 14:33
[2017-05-30] MEDS ORDERED: CLON0.2T12 PO (14:37)
[2017-05-30] MEDS ORDERED: LEVO500T72 GTB (14:37)
[2017-05-30] MEDS ORDERED: DOCU-216 PO (14:37)
[2017-05-30] MEDS ORDERED: BISA5TAB6 PO (14:37)
--- NOTE | 2017-05-30 15:20 | CONS ---
Date/Time of Note Date/Time of Note DATE: 05/30/17 TIME: 15:18 Assessment/Plan Assessment/Plan Additional Assessment/Plan 1.Pre-op for mastectomy - stress test - EF normal, no reversible disease - OK to proceed with surgery 2.HTN-improving on oral antihypertensives - better now 3.HL - stable 4.Breast ca - resection to follow 5.DM - on meds, keep euglycemic. Consultation Date/Type/Reason Admit Date/Time May 27, 2017 at 11:38 Initial Consult Date 05/28/17 Type of Consultation: Cardiology 24 HR Interval Summary Free Text/Dictation stress test - EF normal, no reversible disease - OK to proceed ROS: No fever, no chills, no nausea, no vomiting, no diarrhea/constipation No recent weight changes No chest pain, no PND, no orthopnea No dizziness, blurred vision No thirst, no heat or cold intolerance Exam/Review of Systems Vital Signs Vitals Vital Signs Date Time Temp Pulse Resp B/P Pulse Ox O2 Delivery O2 Flow Rate FiO2 05/30/17 14:04 59 117/54 05/30/17 07:56 98.7 16 95 05/28/17 05:18 Room Air 05/27/17 11:05 2 Intake and Output 05/29/17 05/29/17 05/30/17 14:59 22:59 06:59 Intake Total 110 ml 360 ml Balance 110 ml 360 ml Exam General: WN/WD/NAD, AOx 3 HEENT: Unicetric/atraumatic/EOMI (follow commands) NECK: JVD elevated, no thyromegaly Lymph: no lymphadenopathy HEART: regular with no S3, II/ systolic murmur at apex LUNGS: Coarse sounds ABD: soft, NT, ND, +BS : Intact Neuro: non focal SKIN: chronic changes EXT: trace edema Results Result Diagram: 05/28/17 0455 05/28/17 0435 Results 24 hrs Laboratory Tests Test 05/29/17 17:19 05/29/17 20:41 05/30/17 01:35 05/30/17 08:06 Bedside Glucose 192 197 206 244 H Test 05/30/17 12:06 Bedside Glucose 168 Medications Medications Current Medications Lisinopril (Zestril) 20 mg DAILY PO Last administered on 05/30/17t 08:22; Admin Dose 20 MG; Start 05/27/17 at 20:30 Atorvastatin Calcium (Lipitor) 40 mg DAILY@21 PO Last administered on 05/29/17 20:39; Admin Dose 40 MG; Start 05/27/17 at 21:00 Clonidine (Catapres) 0.2 mg TID PO Last administered on 05/30/17 08:23; Admin Dose 0.2 MG; Start 05/27/17 at 21:00 Hydralazine HCl (Apresoline) 10 mg Q6H PRN IV SBP>170 Last administered on 05/27 21:48; Admin Dose 10 MG; Start 05/27/17 at 20:30 Miscellaneous Information 1 ea NOTE XX ; Start 05/27/17 at 21:00 Glucose (Glutose) 15 gm Q15M PRN PO DECREASED GLUCOSE; Start 05/27/17 at 21:00 Glucose (Glutose) 22.5 gm Q15M PRN PO DECREASED GLUCOSE; Start 05/27/17 at 21: 00 Dextrose (D50w Syringe) 25 ml Q15M PRN IV DECREASED GLUCOSE; Start 05/27/17 at 21:00 Dextrose (D50w Syringe) 50 ml Q15M PRN IV DECREASED GLUCOSE; Start 05/27/17 at 21:00 Glucagon (Glucagen) 1 mg Q15M PRN IM DECREASED GLUCOSE; Start 05/27/17 at 21:00 Glucose (Glutose) 15 gm Q15M PRN BUCCAL DECREASED GLUCOSE; Start 05/27/17 at 21 :00 Al Hydrox/Mg Hydrox/Simethicone (Mag-Al Plus) 30 ml Q6H PRN PO GASTROINTESTINAL UPSET Last administered on 05/28/17 06:47; Admin Dose 30 ML; Start 05/28/17 at 06:30 Linagliptin (Tradjenta) 5 mg DAILY PO Last administered on 05/30/17 08:22; Admin Dose 5 MG; Start 05/28/17 at 13:00 Levofloxacin (Levaquin) 500 mg DAILY GTB Last administered on 05/30/17 08:22; Admin Dose 500 MG; Start 05/28/17 at 13:00 Polyethylene Glycol (Miralax) 17 gm DAILY PRN PO CONSTIPATION Last administered on 05/30/17 05:22; Admin Dose 17 GM; Start 6/30/17 at 21:30 Docusate Sodium (Colace) 100 mg BID PRN PO CONSTIPATION; Start 05/28/17 at 21: 30 Bisacodyl (Dulcolax) 10 mg BID PRN PO CONSTIPATION Last administered on t 17:28; Admin Dose 10 MG; Start 05/28/17 at 21:30 Sodium Biphosphate/ Sodium Phosphate (Fleet Enema) 133 ml DAILY PRN HI CONSTIPATION; Start 05/28/17 at 21:30 Diagnostic Test (Pha) (Accu-Chek) 1 ea 02 XX ; Start 05/30/17 at 02:00 HITESH DUMONT MD May 30, 2017 15:19
--- NOTE | 2017-05-31 16:06 | DS ---
Date/Time of Note Date/Time of Note DATE: 05/31/17 TIME: 16:02 Discharge Summary Admission/Discharge Info Admit Date/Time May 27, 2017 at 11:38 Discharge Date/Time May 30, 2017 at 15:50 Discharge Diagnosis breast cancer Consults Dr Saba, dr Au Procedures 2 D echocardiogram Hx of Present Illness pt was admitted for left breast mastectomy, but her BP was high and uncontrolable. Medications were adjusted and B controlled. Pt was cleared for surgery. She decided to go home before surgery and have microcliping done outpatient with dr Gauthier Hospital Course IMP: 1.Pre-op for mastectomy 2.HTN-improving on oral antihypertensives 3.HL 4.Breast ca 5.DM Recc: -serial ecg's -Pauline -Echo -Consider lexiscan if abnl ecg or echo findings given cardiac risk factors -Follow BS closely -Continue statin and check fasting lipid panel Home Meds Active Scripts Docusate Sodium (Dok) 100 Mg Capsule, 100 MG PO BID Y for CONSTIPATION for 14 Days, CAP Prov:SAMMIE HODGES MD 05/30/17 Bisacodyl* (Bisacodyl*) 5 Mg Tablet.dr 10 MG PO BID Y for CONSTIPATION for 14 Days Prov:SAMMIE HODGES MD 05/30/17 Clonidine Hcl* (Catapres*) 0.2 Mg Tablet, 0.2 MG PO TID for 28 Days, TAB Prov:SAMMIE HODGES MD 05/30/17 Levofloxacin* (Levaquin*) 500 Mg Tablet, 500 MG GTB DAILY for 7 Days, TAB Prov:SAMMIE HODGES MD 05/30/17 Reported Medications Glipizide* (Glipizide*) 5 Mg Tablet, 5 MG PO AC BREAKFAST, TAB 05/27/17 Pioglitazone Hcl* (Pioglitazone Hcl*) 45 Mg Tablet, 45 MG PO DAILY, TAB 05/27/17 Metformin Hcl* (Metformin Hcl*) 1,000 Mg Tablet, 1000 MG PO WITH BREAKFAST DINNE , #30 TAB 05/27/17 Lisinopril* (Lisinopril*) 20 Mg Tablet, 20 MG PO DAILY, #30 TAB 05/27/17 Sitagliptin* (Januvia*) 100 Mg Tablet, 100 MG PO DAILY, #30 TAB 05/27/17 Simvastatin* (Zocor*) 40 Mg Tablet, 80 MG PO QHS, #30 TAB 05/27/17 Discontinued Reported Medications Clonidine Hcl* (Clonidine Hcl*) 0.1 Mg Tab, 0.1 MG PO DAILY Y for ELEVATED BLOOD PRESSURE, TAB 05/27/17 Primary Care Provider SANTA Carlin May 31, 2017 16:06
--- NOTE | 2017-05-31 20:58 | RADRPT ---
Vent Rate: 66 bpm RR Interval: 0 msec NH Interval: 148 msec QRS Duration: 80 msec QT Interval: 418 msec QTC Interval: 438 msec P-R-T [place]: 22 - 8 - 11 degrees Normal sinus rhythm Normal ECG Electronically Signed By: Venkata Scruggs [id number]
== END 2017-05-30 15:50 | disposition home or self-care (01) | DRG 305 ==
LOC: E/R 10:40 → PP2 11:38
PROVIDERS: ADMIT Internal Medicine Nephrology; ATTEND Internal Medicine Nephrology
PROC: C22G1ZZ Tomographic (Tomo) Nuclear Medicine Imaging of Myocardium using Technetium 99m (Tc-99m) (ICD-10-PCS; principal; 2017-05-29)
PROC: 4A02XM4 Measurement of Cardiac Total Activity, External Approach (ICD-10-PCS; 2017-05-29)
PROC: 3E033HZ Introduction of Radioactive Substance into Peripheral Vein, Percutaneous Approach (ICD-10-PCS; 2017-05-29)
DX: I10 Essential (primary) hypertension (principal); C50.912 Malignant neoplasm of unspecified site of left female breast; E11.65 Type 2 diabetes mellitus with hyperglycemia; E78.5 Hyperlipidemia, unspecified; Z86.73 Personal history of transient ischemic attack (TIA), and cerebral infarction without residual deficits
CPT/HCPCS: 36415; 78452; 80048; 80061; 82962; 84484; 85025; 85610; 85730; 87081; 93005; 93017; 93306; A9500; A9505; J0360; J0690; J1100; J1815; J2250; J2405; J2710; J2785; J3010; J7042

== ENCOUNTER 2017-06-21 06:37 | Day surgery (SDC) | payer OTHER ==
[~2017-06-21] VITALS: Ht 157.5 cm; Wt 85.0 kg
[2017-06-21] VITALS (17 sets, daily range): BP systolic 112–154; BP diastolic 60–85; PULSE 54–89; RESP 14–20; Ht 157.5 cm; Wt 85.0 kg
[~2017-06-21 06:37] MED LIST: BISA5TAB6 PO; CLON0.2T12 PO; DOCU-216 PO; GLIP5TAB13 PO; LEVO500T72 GTB; LISI20TA11 PO; METF1000 PO; PIOG45TA17 PO; SIMV40TA2 PO; SITA100T8 PO
[2017-06-21 10:14] LABS: BASOPHILS % 0.4 % (0.0-2.0); EOSINOPHILS # 0.1 10^3/ul (0.0-0.5); EOSINOPHILS % 0.7 % (0.0-7.0); HEMATOCRIT 32.4 % (37.0-47.0); HEMOGLOBIN 10.7 g/dl (12.0-16.0); LYMPHOCYTES # 2.3 10^3/ul (0.8-2.9); LYMPHOCYTES % 31.9 % (15.0-51.0); MEAN CORPUSCULAR HEMOGLOBIN 27.1 pg (29.0-33.0); MEAN PLATELET VOLUME 10.5 fl (7.4-10.4); MONOCYTE # 0.4 10^3/ul (0.3-0.9); MONOCYTES % 5.1 % (0.0-11.0); NEUTROPHIL # 4.3 10^3/ul (1.6-7.5); NEUTROPHILS % 61.6 % (39.0-77.0); PLATELET COUNT 246 10^3/UL (140-415); RED BLOOD COUNT 3.95 10^6/ul (4.20-5.40); RED CELL DISTRIBUTION WIDTH 12.4 % (11.5-14.5); WHITE BLOOD COUNT 7.1 10^3/ul (4.8-10.8)
[2017-06-21] MEDS ORDERED: CEFAZOLIN 2 GM/50 ML (PMX) 50 ML IVPB ONE (10:30)
[2017-06-21] MEDS ORDERED: SOD CHLORIDE 0.9% 1,000 ML IV ONE (10:30)
[2017-06-21 10:32] LABS: INR 0.96; PROTIME 12.8 Sec (12.2-14.2)
[2017-06-21 10:33] LABS: PARTIAL THROMBOPLASTIN TIME 29.7 Sec (25.0-35.0)
[2017-06-21 10:38] LABS: ALBUMIN 3.7 g/dl (3.3-4.9); ALBUMIN/GLOBULIN RATIO 1.27; BILIRUBIN,INDIRECT 0.1 mg/dl (0-1.1); BILIRUBIN,TOTAL 0.1 mg/dl (0.2-1.3); TOTAL PROTEIN 6.6 g/dl (6.1-8.1)
[2017-06-21 10:47] LABS: CREATININE 0.63 mg/dl (0.44-1.00); POTASSIUM 4.4 mmol/L (3.5-5.1)
--- NOTE | 2017-06-21 11:30 | RADRPT ---
PROCEDURE: XR Chest. CLINICAL INDICATION: LT BREAST NEEDLE LOC EXCISIONAL BX TECHNIQUE: Single frontal view of the chest was obtained COMPARISON: None FINDINGS: A presumed needle localization device and adjacent punctate density or calcification project over th e left breast/axillary region. The cardiac silhouette is at the upper limits of normal in size. No pneumothorax, significant pleural effusion, or parenchymal consolidation is identified. No evidence of significant pulmonary vascular congestion. There are degenerative changes of the visualized spine. IMPRESSION: 1. No evidence of acute cardiopulmonary process. 2. A presumed needle localization device and adjacent punctate density or calcification project over the left breast soft/axillary region. RPTAT: PP Physician Julianne Date Time Electronically viewed and signed by Physician Julianne on 06/21/2017 11:30 /
[2017-06-21] MEDS ORDERED: FENTAnyl 50 MCG/ML VIAL ONE (12:55)
[2017-06-21] MEDS ORDERED: PROPOFOL 60 ML ONE (12:55)
[2017-06-21] MEDS ORDERED: FENTAnyl 50 MCG/ML VIAL IV PRN ×3 (13:30)
[2017-06-21] MEDS ORDERED: LABETALOL HCL 20MG INJ IV PRN (13:30)
[2017-06-21] MEDS ORDERED: HYDROmorphONE (0.2 MG/ML) 10ML SYG IV PRN (13:30)
[2017-06-21] MEDS ORDERED: DIPHENHYDRAMINE 50 MG INJ IV PRN (13:30)
[2017-06-21] MEDS ORDERED: EPHEDrine SULFATE 50 MG/5 ML SYG IV PRN (13:30)
[2017-06-21] MEDS ORDERED: ONDANSETRON 4 MG INJ IV PRN (13:30)
[2017-06-21] MEDS ORDERED: hydrALAzine 20 MG INJ IV PRN (13:30)
[2017-06-21] MEDS ORDERED: MEPERIDINE 25 MG INJ IV PRN (13:30)
[2017-06-21] MEDS ORDERED: OXYCODONE/ACETAMINOPHEN (5/325) TAB PO PRN ×2 (13:30)
[2017-06-21] MEDS ORDERED: PROPOFOL 20 ML ONE (13:54)
[2017-06-21] MEDS ORDERED: LIDOCAINE 2% (SDV) 5 ML INJ ONE (13:54)
[2017-06-21] MEDS: HYDROmorphONE (0.2 MG/ML) 10ML SYG IV PRN ×2 (14:22→15:14)
[2017-06-21] MEDS ORDERED: INSULIN ASPART [NOVOLOG] 3 ML PEN SC ONE (14:30)
[2017-06-21] MEDS ORDERED: OXYCODONE/ACETAMINOPHEN (10/325) TAB PO PRN (15:30)
--- NOTE | 2017-06-21 15:59 | OPR ---
DATE OF OPERATION: 06/21/2017 SURGEON: Desmond Gauthier MD. PILLOW AGENT: Dr. Saba. ANESTHESIOLOGIST: Dr. Brunner. PREOPERATIVE DIAGNOSIS: Ductal carcinoma in situ, left breast. POSTOPERATIVE DIAGNOSIS: Ductal carcinoma in situ, left breast. OPERATION PERFORMED: Needle directed left partial mastectomy. ANESTHESIA: General. INDICATIONS FOR PROCEDURE: The patient is a 57-year-old female, who underwent screening mammography and was found to have suspicious lesion in her left breast. Subsequent core biopsy revealed DCIS. She was counseled as to the need for left partial mastectomy. She consented and was scheduled for surgery. OPERATIVE PROCEDURE: On the morning of surgery, the patient presented to [facility] where she underwent localization of the lesion performed by attending radiologist Dr. Miguelina Ashley. Subsequently, she was brought to the operating theater, placed under general anesthesia. The left breast was prepped and draped in usual sterile fashion. The localization wire was in the upper outer quadrant of the left breast. A curvilinear incision was made in this area. Subcutaneous tissue was then dissected with cautery. Skin edges were then elevated with skin hooks and wide circumferential dissection of the tissue, associated with the wire, then took place taking great care to ensure adequate margins. The specimen was then transected, oriented and sent for radiographic confirmation of capture. Capture was confirmed. The specimen was then sent for permanent pathologic analysis. The wound was irrigated. Minimal bleeding was controlled with cautery. The skin was reapproximated with #4-0 Vicryl suture in subcuticular fashion and Dermabond was applied. The patient tolerated the procedure well. The estimated blood loss was 30 mL. There were no complications. The patient was transported in stable condition to the recovery room where a circumferential compression dressing was applied. Dictated By: Desmond Gauthier MD /trish/deshawn /Document#: [id number]
== END 2017-06-21 20:25 | disposition home or self-care (01) ==
LOC: SDS 06:37 → MS1 16:05 → SDS 20:25
PROVIDERS: ATTEND Surgery Surgical Oncology
DX: D05.12 Intraductal carcinoma in situ of left breast (principal); N60.22 Fibroadenosis of left breast; E11.9 Type 2 diabetes mellitus without complications; I10 Essential (primary) hypertension; E66.9 Obesity, unspecified; Z68.34 Body mass index [BMI] 34.0-34.9, adult
CPT/HCPCS: 19301; 71010; 80053; 82962; 85025; 85610; 85730; 88307; J1170; J2405; J3010; Z7512; Z7610